=== PATIENT | male | born 1970 | race Caucasian/White ===

== ENCOUNTER 2025-07-23 10:19 | Emergency (ER) | payer OTHER, SELFPAY ==
[2025-07-23 10:25] VITALS: BP 148/90
--- NOTE | 2025-07-23 11:17 | ED.GENMED ---
History of Present Illness
General
Chief Complaint: Nose Bleed
Time Seen by Provider: 07/23/25 11:00
History of Present Illness
History of Present Illness:
55-year-old male presents to the emergency department for evaluation of intermittent epistaxis from the right nare occurring over the past several days. Seems to start and stop without obvious provocation or palliation. No history of nosebleeds.
Not on any antiplatelets or anticoagulants. Denies any recent nasal trauma.
Past History
Past History
ED Past Medical History: HTN
ED Past Surgical History: Negative None
Review of Systems
Review of Systems
Allergies reviewed?: Yes
All Other Systems: ROS reviewed and negative except as documented in HPI and ROS
Phy Exam
Physical Exam
Physical Exam:
GEN: Well appearing, NAD, WDWN
HEENT: Oral mucosa moist, no scleral icterus. No evidence of recent bleeding in the naris bilaterally, does appear to have a deviated septum. No prominent vasculature in Kiesselbach's plexus
Cardiac: Regular rate
Lung: No respiratory distress, no tachypnea
MSK: No gross deformity or injuries
Skin: Good color, no pallor or jaundice, no rashes
Neuro: AO x3, moves all extremities freely
Psych: Calm, cooperative
Course
Vital Signs
Initial and Last Documented VS:
Initial Vital Signs
Temp Pulse Resp BP Pulse Ox
98 F 67 16 148/90 96
07/23/25 10:25 07/23/25 10:25 07/23/25 10:25 07/23/25 10:25 07/23/25 10:25
Last Documented Vital Signs
Temp Pulse Resp BP Pulse Ox
98 F 67 16 148/90 96
07/23/25 10:25 07/23/25 10:25 07/23/25 10:25 07/23/25 10:25 07/23/25 11:19
MDM/Problems Addressed
MDM/Problems Addressed:
Recommend ENT follow-up for further evaluation, encourage patient to use nasal moisturizer such as Neosporin or saline sprays in addition to oxymetazoline for recurrent bleeding, supportive care and return parameters discussed
*Pulse Oximetry
SaO2: 96
Oxygen Mode of Delivery: Room air
Patient hypoxic: no
*Critical Care Note
Total Time (30-74mins, 75-104mins- exclusive of procedures): Not Applicable
ED Attending Note
-
Portions of this chart may have been created with voice recognition software.� Occasional wrong word or��sound alike� substitutions may have occurred due to the inherent limitations of voice recognition software.
Discharge Plan
Departure
Patient Disposition: Home (Routine Discharge)
Date of Disposition: 07/23/25
Time of Disposition: 11:17
Patient with high blood pressure during this ER visit?: No
Discharge Problem:
Frequent nosebleeds
Instructions: Nosebleeds (DC)
Prescriptions:
No Action
penicillin V potassium 500 mg tablet
500 mg PO TID 7 Days Qty: 21 0RF
oxycodone-acetaminophen [Percocet] 5-325 mg tablet
1 tab PO Q6H PRN (Reason: Pain) Qty: 7 0RF
Referrals:
Hank Hoang MD [Active, Otology]
Activity Restrictions/Additional Instructions:
If you have another nose bleed, hold pressure just below the bony part of your nose for 10-15 minutes
Try using over the counter Afrin (oxymetazoline) to reduce bleeding as well. You SHOULD NOT use this product for more than 3 consecutive days
Follow up with ENT for further evaluation of the bleeding
Interventions
Interventions:
*Risk Screen - Suicide Last Done: 07/23/25 10:25
*General Assessment Last Done: 07/23/25 11:04
*Neglect/Abuse Screening Last Done: 07/23/25 10:25
*ED COVID-19 Vaccine History Last Done: 07/23/25 11:04
*ED Influenza Vaccine History Last Done: 07/23/25 11:04
*Nursing Disposition Last Done: 07/23/25 11:22
ED-EENT Assessment Last Done: 07/23/25 11:04
Discharge Date and Time
Discharge Date/Time: 07/23/25 11:23
Print Language: [id number]
== END 2025-07-23 11:23 | disposition home or self-care (01) ==
LOC: EMR 10:19
PROVIDERS: EMERGENCY PHYSICIAN Emergency Medicine; FAMILY PHYSICIAN Internal Medicine
DX: R04.0 Epistaxis (principal); I10 Essential (primary) hypertension
CPT/HCPCS: 99282